=== PATIENT | male | born 1950 | race Two or more races ===

== ENCOUNTER 2018-01-03 14:20 | Emergency (ER) | payer MEDICARE ==
[~2018-01-03] VITALS: Ht 177.8 cm; Wt 68.0 kg
[2018-01-03 15:00] LABS: BASOPHILS # (AUTO) 0.1 /CMM (0.0-0.2); BASOPHILS % (AUTO) 1.9 % (0.0-2.0); EOSINOPHILS % (AUTO) 0.6 % (0.0-6.0); HEMATOCRIT 37 % (39-51); HEMOGLOBIN 11.8 g/dL (13.5-17.5); LYMPHOCYTES # (AUTO) 1.8 /CMM (0.8-4.8); LYMPHOCYTES % (AUTO) 24.6 % (20.0-44.0); MEAN CORPUSCULAR HGB CONC 32 g/dl (31.0-36.0); MEAN CORPUSCULAR VOLUME 93 fL (80-96); MONOCYTES # (AUTO) 0.4 /CMM (0.1-1.30); MONOCYTES % (AUTO) 5.5 % (2.0-12.0); NEUTROPHILS # (AUTO) 4.9 /CMM (1.8-8.9); NEUTROPHILS % (AUTO) 67.4 % (43.0-81.0); PLATELET COUNT (AUTO) 337 /CMM (150-450); RED BLOOD CELL COUNT(AUTO) 3.96 MIL/uL (4.5-6.0); WHITE BLOOD COUNT (AUTO) 7.2 K/uL (4.3-11.0)
[2018-01-03] MEDS ORDERED: IV NS 0.9% 1,000 ML BAG IV ONE (15:00)
--- NOTE | 2018-01-03 15:01 | NUR ---
bibra 89 c/o nausea and vomiting x 2 days, afebrile. PT AAOX 3, VSS. DENIES CP, SOB, DIZZINESS, DIARRHEA @ THIS TIME. PT SEEN & EVAL'D BY DR. SALVADOR. PT REFUSING MED FOR NAUSEA, AWARE. WILL CONT TO MONITOR. @ BS.
[2018-01-03 15:14] LABS: CALCIUM, SERUM 9.5 mg/dL (8.5-10.1); CARBON DIOXIDE 27 mmol/L (21-32); CHLORIDE 105 mmol/L (98-107); CREATININE 1.9 mg/dL (0.6-1.3); GLUCOSE 116 mg/dL (74-106); POTASSIUM 3.7 mmol/L (3.5-5.1); SODIUM SERUM 141 mmol/L (136-145); UREA NITROGEN, BLOOD 20 mg/dL (7-18)
[2018-01-03 15:16] LABS: INR 1.03 (0.85-1.15)
[2018-01-03 15:19] LABS: ALANINE AMINOTRANSFERASE 24 U/L (12-78); ALBUMIN 3.5 g/dL (3.4-5.0); ALKALINE PHOSPHATASE 95 U/L (46-116); ASPARTATE AMINOTRANSFERASE 30 U/L (15-37); BILIRUBIN,DIRECT 0.2 mg/dL (0.0-0.2); BILIRUBIN,TOTAL 0.6 mg/dL (0.2-1.0); TOTAL PROTEIN, SERUM 10.2 g/dL (6.4-8.2)
[2018-01-03 15:21] LABS: TROPONIN I < 0.017 ng/mL (0.00-0.056)
--- NOTE | 2018-01-03 18:25 | NUR ---
Patient discharged to home in stable condition. Written and verbal after care instructions given. Patient verbalizes understanding of instruction.
[2018-01-03 18:27] VITALS: BP 132/86
[2018-01-03] MEDS ORDERED: ONDANSETRON HCL/PF 4 MG/2 ML VIAL IV ONE (18:30)
== END 2018-01-03 18:29 | disposition home or self-care (01) ==
LOC: ER 14:22
DX: R55 Syncope and collapse (principal); R11.2 Nausea with vomiting, unspecified; D64.9 Anemia, unspecified; N17.9 Acute kidney failure, unspecified; N13.2 Hydronephrosis with renal and ureteral calculous obstruction; R59.1 Generalized enlarged lymph nodes; C79.9 Secondary malignant neoplasm of unspecified site; Z85.46 Personal history of malignant neoplasm of prostate
CPT/HCPCS: 36415; 70450; 71045; 74176; 80048; 80076; 84484; 85025; 85730; 96360; 99285; J7030; A4606; Z7610